=== PATIENT | male | born 1950 | race Caucasian/White ===

== ENCOUNTER 2020-06-04 10:59 | Outpatient (REF) | payer OTHER, SELFPAY | END 2020-06-04 11:00 | disposition home or self-care (01) | LOC: HO.BBR 10:59 | PROVIDERS: PCP Internal Medicine Sports Medicine; Visit Provider Internal Medicine | DX: Z13.89 Encounter for screening for other disorder (principal) ==

== ENCOUNTER 2020-10-08 08:44 | Outpatient (REF) | payer OTHER, SELFPAY | END 2020-10-08 08:45 | disposition home or self-care (01) | LOC: HO.BBR 08:44 | PROVIDERS: Visit Provider Internal Medicine | DX: Z13.89 Encounter for screening for other disorder (principal) ==

== ENCOUNTER 2021-02-12 08:44 | Outpatient (REF) | payer MEDICARE, SELFPAY | END 2021-02-12 08:45 | disposition home or self-care (01) | LOC: HO.BBR 08:44 | PROVIDERS: PCP Internal Medicine Sports Medicine; Visit Provider Internal Medicine | DX: Z13.89 Encounter for screening for other disorder (principal) ==

== ENCOUNTER 2021-06-10 08:01 | Outpatient (REF) | payer MEDICARE, SELFPAY | END 2021-06-10 08:02 | disposition home or self-care (01) | LOC: HO.BBR 08:01 | PROVIDERS: PCP Internal Medicine Sports Medicine; Visit Provider Internal Medicine | DX: Z13.89 Encounter for screening for other disorder (principal) ==

== ENCOUNTER 2022-04-09 14:09 | Outpatient (REF) | payer MEDICARE, SELFPAY | END 2022-04-09 14:10 | disposition home or self-care (01) | LOC: HO.BBR 14:09 | PROVIDERS: Visit Provider Internal Medicine | DX: Z13.89 Encounter for screening for other disorder (principal) ==

== ENCOUNTER 2022-10-20 08:57 | Outpatient (REF) | payer MEDICARE, SELFPAY | END 2022-10-20 08:58 | disposition home or self-care (01) | LOC: HO.BBR 08:57 | PROVIDERS: Visit Provider Internal Medicine | DX: Z13.89 Encounter for screening for other disorder (principal) ==

== ENCOUNTER 2023-04-18 08:53 | Outpatient (REF) | payer MEDICARE, SELFPAY | END 2023-04-18 08:54 | disposition home or self-care (01) | LOC: HO.BBR 08:53 | PROVIDERS: Visit Provider Internal Medicine | DX: Z13.89 Encounter for screening for other disorder (principal) ==

== ENCOUNTER 2023-12-20 09:48 | Outpatient (REF) | payer MEDICARE, SELFPAY | END 2023-12-20 09:49 | disposition home or self-care (01) | LOC: HO.BBR 09:48 | PROVIDERS: PCP Internal Medicine Sports Medicine; Visit Provider Internal Medicine | DX: Z13.89 Encounter for screening for other disorder (principal) ==

== ENCOUNTER 2023-12-26 07:49 | Outpatient (REF) | payer MEDICARE, SELFPAY ==
--- NOTE | ~2023-12-26 | CT_ITS ---
CT SINUS WITHOUT CONTRAST HISTORY: polyps, deviated nasal septum TECHNIQUE: CT images of the paranasal sinuses were acquired without contrast. This CT examination was performed using dose optimization techniques as appropriate, variously including the following: *Automated exposure control *Adjustment of mA and/or kV according to patient size (this includes techniques or standardized protocols for targeted exams where dose is matched to indication/reason for exam; i.e. extremities or head) *Use of iterative reconstruction technique DLP: 119 mGycm COMPARISON: None available FINDINGS: NASAL CAVITY: Leftward nasal septal deviation with leftward bony spur impinging on the left inferior nasal turbinate and encroachment upon the left lateral nasal cavity wall. Mild to moderate mucosal disease in the nasal cavity. The left olfactory fossa is asymmetrically shallow compared to the right with lateral downsloping of the left lateral lamella contiguous with the fovea ethmoidalis. No evidence of Keros type III cribriform plate (lateral lamella 8-16 mm). FRONTAL SINUS: LEFT: Mild to moderate mucosal disease with opacified frontal sinus drainage pathway. RIGHT: Moderate mucosal disease with opacified frontal sinus drainage pathway. MAXILLARY SINUS: LEFT: Mild mucosal disease with more pronounced polypoid disease in the alveolar recess Narrowed but patent ostium with otherwise patent ostiomeatal unit. RIGHT: Mild mucosal disease, with polypoid disease in the alveolar recess. Lateralization of the right uncinate process against the anterior right ethmoid air cells and inferomedial right orbit. Opacified right maxillary sinus ostium and infundibulum with patent middle meatus. ETHMOID AIR CELLS: LEFT: Moderate mucosal disease with patchy opacification RIGHT: Moderate mucosal disease with patchy opacification Lamina papyracea: Intact. Anterior ethmoid canals do not traverse through the ethmoid air cells. SPHENOID SINUS: LEFT: Contains dependent aerated debris with mild patchy mucosal disease with opacified ostium and sphenoethmoidal recess. Pneumatization extends into the base of the left anterior clinoid process. RIGHT: Mild to moderate circumferential disease with opacified ostium and sphenoethmoidal recess. Pneumatization extends into the right anterior clinoid process. The sphenoid septum inserts onto the left paraclinoid carotid canal. Sphenoethmoidal (Onodi) cell: None. OTHER: Normal appearance of the orbits. Hyperpneumatization of the mastoid temporal bone extending into the petrous and squamosal portions. 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 Additionally, portions of the semicircular canals demonstrate thinning of the bony interface with adjacent air cells that can be correlated clinically for third window phenomenon and better characterized on high-resolution temporal bone CT as clinically warranted. The carotid canals are covered by bone. The temporomandibular joints are normal. The mastoid air cells and middle ear cavities are well aerated. Limited evaluation of the intracranial structures without significant abnormalities. Calcific plaque along the carotid siphons. CT/CT sinus wo IV con IMPRESSION: 1. Leftward nasal septal deviation with leftward bony spur impinging on the left inferior nasal turbinate and encroachment upon the left lateral nasal cavity wall. Mild to moderate mild to moderate sinonasal polyposis as above with diffusely opacified major sinus drainage outflow tracts. No air-fluid level. 2. Hyperpneumatization extends into the petrous and squamosal portions of the bilateral temporal bones. Asymmetric severe narrowing of the porous acoustic is and inner aspect of the right IAC can be correlated for referrable right cranial nerve VII/VIII complex symptomatology. 3. Portions of the semicircular canals demonstrate thinning of the bony interface with adjacent air cells that can be correlated clinically for third window phenomenon and better characterized on high-resolution temporal bone CT as clinically warranted.
== END 2023-12-26 07:50 | disposition home or self-care (01) ==
LOC: HO.CT 07:49
PROVIDERS: Visit Provider Otolaryngology
DX: J30.0 Vasomotor rhinitis (principal); J34.2 Deviated nasal septum
CPT/HCPCS: 70486

== ENCOUNTER 2024-03-22 09:35 | Outpatient (REF) | payer MEDICARE, SELFPAY ==
[2024-03-22 10:44] LABS: MANUAL DIFF FLAG NO
[2024-03-22 11:47] LABS: Basophils Absolute Auto 0.1 X10*3/uL (0.0-0.2); Eosinophils Absolute Auto 0.5 X10*3/uL (0.0-0.4); Hematocrit 48.4 % (42.0-52.0); Hemoglobin 16.6 g/dl (14.0-18.0); Imm Gran Abs Auto 0.01 X10*3/uL (0.00-0.03); Imm Gran Pct Auto 0.2 % (0.0-0.4); Lymphocytes Percent Auto 31.7 % (20-40); Mean Corpuscular HGB Conc 34.3 g/dl (31.0-36.0); Mean Corpuscular Hemoglobin 32.5 pg (27.0-33.0); Mean Corpuscular Volume 94.9 fL (80.0-98.0); Monocytes Absolute Auto 0.5 X10*3/uL (0.1-1.2); Monocytes Percent Auto 7.5 % (2-11); Neutrophils Absolute Auto 3.2 x10*3/uL (2.0-8.3); Neutrophils Percent Auto 51.6 % (45-73); Platelet Count 171 X10*3/uL (160-400); Red Cell Distribution Width 12.1 % (11.0-16.0); White Blood Count 6.3 X10*3/uL (4.8-10.8)
[2024-03-27 03:02] LABS: Class Alternaria alternata 0; Class Aspergillus fumigatus 0; Class Bermuda Grass 0; Class Birch 0; Class Cat Dander 0; Class Cladosporium herbarum 0; Class Cockroach 0; Class Common Ragweed 0/1; Class Cottonwood 0; Class Derm. pterony 3; Class Dermatophagoides farinae 3; Class Dog Dander 1; Class Elm 0; Class Maple Box Elder 0/1; Class Mountain Cedar 0; Class Mouse Urine Protein 0; Class Mugwort 0/1; Class Oak 0; Class Penicillium crysogenum 0; Class Rough Pigweed 0; Class Sheep Sorrel 0; Class Sycamore 0; Class Timothy Grass 1; Class Walnut Tree 0; Class White Ash 0; Class White Mulberry 0; D001 IgE D pteronyssinus 3.59 kU/L; D002 - IgE D farinae 4.87 kU/L; E001 - IgE Cat Dander <0.10 kU/L; E005 - IgE Dog Dander 0.36 kU/L; E072-IgE Mouse Urine <0.10 kU/L; G002 IgE Bermuda Grass <0.10 kU/L; G006 - IgE Timothy Grass 0.36 kU/L; I006-IgE Cockroach, German <0.10 kU/L; Immunoglobulin E 214 kU/L (<OR=114); M001 IgE Penicillium chrysogen <0.10 kU/L; M002 - IgE Cladosporium herbar <0.10 kU/L; M003 - IgE Aspergillus fumigat <0.10 kU/L; M006 - IgE Alternaria alternat <0.10 kU/L; T001 IgE Maple/Box Elder 0.12 kU/L; T003 IgE Common Silver Birch <0.10 kU/L; T006 - IgE Cedar, Mountain <0.10 kU/L; T007 - IgE Oak, White <0.10 kU/L; T008 IgE Elm, American <0.10 kU/L; T010 - IgE Walnut <0.10 kU/L; T011 - IgE Maple Leaf Sycamore <0.10 kU/L; T014 - IgE Cottonwood <0.10 kU/L; T015 - IgE Ash, White <0.10 kU/L; T070 - IgE White Mulberry <0.10 kU/L; W001 - IgE Ragweed, Short 0.21 kU/L; W014 IgE Pigweed, Common <0.10 kU/L; W018 IgE Sheep Sorrel <0.10 kU/L
== END 2024-03-22 09:36 | disposition home or self-care (01) ==
LOC: HO.LAB 09:35
PROVIDERS: PCP Internal Medicine Sports Medicine; Referring Provider Otolaryngology; Visit Provider Internal Medicine Pulmonary Disease
DX: J45.909 Unspecified asthma, uncomplicated (principal); Z91.09 Other allergy status, other than to drugs and biological substances
CPT/HCPCS: 36415; 82785; 85025; 86003; 99202

== ENCOUNTER 2024-03-22 09:35 | Outpatient (AMB) | payer MEDICARE, SELFPAY ==
[2024-03-22 09:38] VITALS: BP 110/80; PULSE 71; O2SAT 94; BMI 30.6
--- NOTE | 2024-03-22 09:38 | A.OFFVIS_ITS ---
Vital Signs 03/22/24 09:38 Height 5 ft 11 in Weight 219 lb 5.759 oz BMI 30.6 BP 110/80 Blood Pressure Location Rt brachial Position Sitting Pulse 71 Pulse Source Doppler Pulse Oximetry (%) 94 Oxygen Delivery Method Room Air Intake Visit Reasons: asthma Allergies No Known Allergies Allergy (Verified 03/22/24 09:44) HPI HPI asthma: Details: 73-year-old gentleman, lifetime nonsmoker, with no family or personal history of lung disease referred for evaluation of intermittent wheezing associated with cough productive of whitish sputum with some response to prior course of prednisone, but no significant response to Flonase or Zyrtec. Patient states that he was started on albuterol MDI with improvement in his symptoms, but not complete control. He does have a dog. He was employed without exposure to industrial dusts. [facility] Social History (Updated 03/22/24 @ 09:45 by BENSON Cruz) Patient Tobacco Use Status: Never used Tobacco Review of Systems ENT Reports nasal congestion Card Denies chest pain Resp Reports cough, Reports excessive phlegm production and Reports wheezing Aller/Immun Reports wheezing Physical Exam Vital Signs: Last Vital Signs Pulse 71 03/22/24 09:38 BP 110/80 03/22/24 09:38 Pulse Ox 94 03/22/24 09:38 Oxygen Delivery Method Room Air 03/22/24 09:38 BMI result Body Mass Index 30.6 Const General: no acute distress and alert Nutritional Appearance: not obese Orientation/consciousness: Other orientation findings ( oriented) HEENT Head: Yes atraumatic Eyes General: appearance normal, both eyes and all related structures Sclerae: sclerae normal EOM: EOMs intact bilaterally Neck Neck: Yes supple Lymphatic: no lymphadenopathy noted Resp Effort & Inspection: normal respiratory effort and no use of accessory muscles Auscultation: clear to auscultation bilaterally Cardio Rate: regular rate Rhythm: regular rhythm Heart sounds: no gallops, no murmurs and no rubs Skin General skin exam: other ( warm) Extrem General: No clubbing, No cyanosis and No edema Assessment & Plan Assessment & Plan (1) Asthma: Code(s): J45.909 - Unspecified asthma, uncomplicated Category: Medical Plan: Likely underlying asthma of unclear severity. Will obtain full PFT and start on empiric Breo. Continue albuterol MDI. (2) Environmental allergies: Code(s): Z91.09 - Other allergy status, other than to drugs and biological substances Category: Medical Plan: Environmental allergies with suboptimal control on Zyrtec and Flonase. Will obtain RAST panel, IgE level, and CBC with differential for further evaluation. Orders: Orders Resp Allergy Profile Region I Today J45.909 - Unspecified asthma, uncomplicated, Z91.09 - Other allergy status, other than to drugs and biological substances PFT pulmonary function test Today J45.909 - Unspecified asthma, uncomplicated Complete Blood Count Auto Diff Today Z91.09 - Other allergy status, other than to drugs and biological substances Medications: New fluticasone furoate-vilanterol 200-25 mcg/dose (Breo Ellipta) 1 inh inhalation DAILY 1 ea 6RF J45.909 - Unspecified asthma, uncomplicated Coding Level of Care Code New Pt Level 4 (91801) Diagnoses Asthma J45.909 Environmental allergies Z91.09
== END 2024-03-22 10:09 | disposition home or self-care (01) ==
PROVIDERS: PCP Internal Medicine Sports Medicine; Referring Provider Otolaryngology; Visit Provider Internal Medicine Pulmonary Disease
DX: J45.909 Unspecified asthma, uncomplicated (principal); Z91.09 Other allergy status, other than to drugs and biological substances
CPT/HCPCS: 99204

== ENCOUNTER 2024-04-18 14:06 | Outpatient (AMB) | payer MEDICARE, SELFPAY ==
[2024-04-18 14:07] VITALS: BP 128/67; PULSE 59; O2SAT 95; BMI 30.4
--- NOTE | 2024-04-18 14:07 | MHC.OFFVIS ---
Vital Signs 04/18/24 14:07 Height 5 ft 11 in Weight 218 lb BMI 30.4 BP 128/67 Blood Pressure Location Rt brachial Position Sitting Pulse 59 Pulse Source Doppler Pulse Oximetry (%) 95 Oxygen Delivery Method Room Air Intake Visit Reasons: Asthma Allergies No Known Allergies Allergy (Verified 03/22/24 09:44) HPI HPI Asthma: Details: 73-year-old gentleman, lifetime nonsmoker, with no family or personal history of lung disease referred for evaluation of intermittent wheezing associated with cough productive of whitish sputum with some response to prior course of prednisone, but no significant response to Flonase or Zyrtec. Patient states that he was started on albuterol MDI with improvement in his symptoms, but not complete control. He does have a dog. He was employed without exposure to industrial dusts. After the last office visit patient was started on Breo with significant improvement in his symptoms. He is also completed his immunologic testing showed that he has immunologic component to his symptoms. He denies recent exacerbations. [facility], [facility] Social History (Updated 03/22/24 @ 09:45 by Yenny Woo FOR[facility]LY [facility], [facility]) Patient Tobacco Use Status: Never used Tobacco Review of Systems Const Denies daytime sleepiness, Denies excessive sweating, Denies fatigue, Denies fever(s), Denies lethargy, Denies malaise, Denies night sweats, Denies snoring and Denies weight loss Eyes Denies blurry vision and Denies itchy eyes ENT Denies nasal congestion, Denies post nasal drip, Denies sinus pain, Denies sinus pressure and Denies other ( Thrush) Card Denies chest pain, Denies pedal edema, Denies dyspnea, Denies orthopnea and Denies paroxysmal nocturnal dyspnea Resp Denies cough, Denies hemoptysis, Denies excessive phlegm production, Denies dyspnea, Denies snoring and Denies wheezing GI Denies abdominal pain and Denies heartburn Musc Denies myalgias, Denies arthralgias and Denies joint swelling Skin/Breast Denies rash Neuro Denies memory loss and Denies seizure-like activity Psych Denies abnormal sleep pattern, Denies anxiety and Denies memory loss Endo Denies excessive sweating, Denies fatigue and Denies heat intolerance Eyad/Lymph Denies easy bruising Aller/Immun Denies itchy eyes, Denies seasonal rhinorrhea and Denies wheezing Physical Exam Vital Signs: Last Vital Signs Pulse 59 04/18/24 14:07 BP 128/67 04/18/24 14:07 Pulse Ox 95 04/18/24 14:07 Oxygen Delivery Method Room Air 04/18/24 14:07 BMI result Body Mass Index 30.4 Const General: no acute distress and alert Nutritional Appearance: not obese Orientation/consciousness: Other orientation findings ( oriented) HEENT Head: Yes atraumatic Eyes General: appearance normal, both eyes and all related structures Sclerae: sclerae normal EOM: EOMs intact bilaterally Neck Neck: Yes supple Lymphatic: no lymphadenopathy noted Resp Effort & Inspection: normal respiratory effort and no use of accessory muscles Auscultation: clear to auscultation bilaterally Cardio Rate: regular rate Rhythm: regular rhythm Heart sounds: no gallops, no murmurs and no rubs Skin General skin exam: other ( warm) Extrem General: No clubbing, No cyanosis and No edema Assessment & Plan Assessment & Plan (1) Asthma: Code(s): J45.909 - Unspecified asthma, uncomplicated Category: Medical Plan: Well controlled on Breo and albuterol MDI. Continue current regimen. (2) Environmental allergies: Code(s): Z91.09 - Other allergy status, other than to drugs and biological substances Category: Medical Plan: Results of RAST testing CBC with differential, and IgE level reviewed. Underlying significant immunologic component to his symptoms that is currently well controlled on inhaled corticosteroid, if stops being controlled, will consider Xolair. Coding Level of Care Code Est Pt Level 4 (63488) Diagnoses Asthma J45.909 Environmental allergies Z91.09
== END 2024-04-18 14:27 | disposition home or self-care (01) ==
PROVIDERS: PCP Internal Medicine Sports Medicine; Visit Provider Internal Medicine Pulmonary Disease
DX: J45.909 Unspecified asthma, uncomplicated (principal); Z91.09 Other allergy status, other than to drugs and biological substances
CPT/HCPCS: 99214

== ENCOUNTER → 2024-04-18 14:06 | Outpatient (BNVA) | payer MEDICARE, SELFPAY | PROVIDERS: PCP Internal Medicine Sports Medicine; Visit Provider Internal Medicine Pulmonary Disease | DX: J45.909 Unspecified asthma, uncomplicated (principal); Z91.09 Other allergy status, other than to drugs and biological substances | CPT/HCPCS: 99212 ==

== ENCOUNTER 2024-06-18 08:57 | Outpatient (REF) | payer MEDICARE, SELFPAY ==
--- OUTSIDE RECORDS SUMMARY | 2024-06-18 09:07 | XMS_ITS | Continuity of Care Document ---
Author Organization [facility] Address [address] [place] [address]- Care Team Providers Care Wire Border Assembler Name Role Phone Dustin SHARMA, Paul Perera Primary Care Physician [phone] Encounter [facility] Date(s): 05/02/24 - 06/01/24 [facility] [address] [place], [place] [address] Encounter Type: Triage Allergies, Adverse Reactions, Alerts No Known Allergies Immunizations Given and Recorded Vaccine Date Status Refusal Reason RSV vaccine, preF A-preF B, recombinant 03/29/24 R ecorded influenza virus vaccine, inactivated 03/28/24 Cisco rded influenza virus vaccine, inactivated 04/02/23 Cisco rded influenza virus vaccine, inactivated 03/22/22 Cisco rded influenza virus vaccine, inactivated 03/30/21 Cisco rded influenza virus vaccine, inactivated 03/20/20 Cisco rded influenza virus vaccine, inactivated 04/12/19 Cisco rded influenza virus vaccine, inactivated 04/06/18 Cisco rded influenza virus vaccine, inactivated 04/08/17 Cisco rded influenza virus vaccine, inactivated 04/09/15 Cisco rded [id number] 12y+ bivalent booster vax 04/19/22 Recorded SARS-CoV-2 mRNA ([id number]) vax 10/15/21 Recorded SARS-CoV-2 (COVID-19) mRNA BNT-162b2 vac 03/30/21 Recorded SARS-CoV-2 (COVID-19) mRNA BNT-162b2 vac 09/13/20 Recorded SARS-CoV-2 (COVID-19) mRNA BNT-162b2 vac 08/23/20 Recorded tetanus/diphtheria/pertussis, acel(Tdap) 05/29/19 Recorded pneumococcal 23-valent vaccine 04/20/18 Recorded zoster vaccine, inactivated 11/12/17 Recorded zoster vaccine, inactivated 08/22/17 Recorded pneumococcal 13-valent vaccine 08/22/17 Recorded Medications albuterol CFC free 90 mcg/inh inhalation aerosol 2, puffs, Inhalation, Every 4 hours, PRN, # 8.5 Gm, Refills 0, Tot. Refills 0, Maintenance, :32:00 PM EDT, Aerosol, Route to Pharmacy Electronically, [id number], [facility]/pharmacy #[id number], 178, cm, 12/05/23 15:01:00 EDT, Height, 96.3, kg, 05/26/22 6:14:00 EST, Dry Weight Start Date: 03/02/24 Status: Ordered Quantity: 8.5 Unit: g Repeat number: 1 atorvastatin 20 mg oral tablet 1 tablet, By Mouth, Daily at bedtime, # 90 tablet, 3 Refills, Maintenance, 05/05/24 1:26:00 PM EDT, [facility] STORE [id number], 178, cm, 12/05/23 15:01:00 EDT, Height, 96.3, kg, 05/26/22 6:14:00 EST, Dry Weight Start Date: 05/05/24 Status: Ordered Quantity: 90.0 Unit: tablet Repeat number: 1 Centrum 1 tablet, By Mouth, Daily, Maintenance, 04/12/22 8:39:00 AM EDT, Partial fill upon patient request if the prescription is for a schedule II opioid drug. Start Date: 04/12/22 Status: Ordered Repeat number: 1 Flonase Allergy Relief 50 mcg/inh nasal spray 1 sprays, Nares, Both, 2 times a day, # 16 Gm, 3 Refills, Maintenance, 03/02/24 1:32:00 PM EDT, [facility]/pharmacy #1972, Partial fill upon patient request if the prescription is for a schedule II opioid drug., 178, cm, 12/05/23 15:01:00 EDT, Height, 96.3, kg, 05/26/22 6:14:00 EST, Dry Weight Start Date: 03/02/24 Status: Ordered Quantity: 16.0 Unit: g Repeat number: 4 lisinopril 10 mg oral tablet 1, tablet, By Mouth, Daily, # 90 tablet, Refills 1, Tot. Refills 1, 04/10/24 5:26:00 PM EDT, Route to Pharmacy Electronically, [facility]/pharmacy #1972, 178, cm, 12/05/23 15:01:00 EDT, Height, 96.3, kg, 05/26/22 6:14:00 EST, Dry Weight Start Date: 04/10/24 Status: Ordered Quantity: 90.0 Unit: tablet Repeat number: 2 Ocuvite 1 tablet, By Mouth, Daily, Maintenance, 04/12/22 8:39:00 AM EDT, Partial fill upon patient request if the prescription is for a schedule II opioid drug. Start Date: 04/12/22 Status: Ordered Repeat number: 1 Problem List Condition Confirmation Course Effective Dates Status H ealth Status Informant Chronic neck pain Confirmed Active Essential hypertension Confirmed Active Hemochromatosis Confirmed Active Hyperlipidemia Confirmed Active Actinic keratoses Confirmed Active Obese class I Confirmed Active SVT (supraventricular tachycardia) 1 Confirmed Active Social History Social History Type Response Smoking Status Never (less than 100 in lifetime) entered on: 01/26/21 Sex Sex Representation Male (finding) Patient Care team information Care Team Personnel Name: Dwayne Thornton RN Position: [facility] RN Member Role: Primary Care Nurse Name: Paul Chan MD Position: [facility] Physician - Primary Care Member Role: PCP Address: [address] [place] [address] [facility] [address] Telecom: Care Team Related Persons Name: EDWIN MORA Insurance Providers Guarantor name: BLUE Health Plan Information #: 1 Payer: BLUE Member Number: BLUE Policy Number: NA Group Number: [id number]
--- OUTSIDE RECORDS SUMMARY | 2024-06-18 09:07 | XMS_ITS | Continuity of Care Document ---
Author Organization [facility] Address [address] [place] [address]- Care Team Providers Care Appointment Specialist Name Role Phone Dustin SHARMA, Paul Perera Primary Care Physician Encounter [facility] Date(s): 05/11/24 - 06/10/24 [facility] [address] [place], [place] [address] Encounter Type: Triage Allergies, Adverse Reactions, [...] influenza virus vaccine, inactivated 04/09/15 Cisco rded [id number] 12y+ bivalent booster vax 04/19/22 Recorded SARS-CoV-2 mRNA (xadelxy-[id number]-fszai) vax 10/15/21 Recorded SARS-CoV-2 (COVID-19) mRNA BNT-162b2 [...] PM EDT, Aerosol, Route to Pharmacy Electronically, [id number], [facility]/pharmacy #1972, 178, cm, 12/05/23 15:01:00 EDT, Height, 96.3, kg, 05/26/22 6:14:00 EST, Dry Weight Start Date: 03/02/24 Status: Ordered Quantity: 8.5 Unit: g Repeat number: 1 atorvastatin 20 mg oral tablet 1 tablet, By Mouth, Daily at bedtime, # 90 tablet, 3 Refills, Maintenance, 05/05/24 1:26:00 PM EDT, [id number], 178, cm, 12/05/23 15:01:00 EDT, Height, 96.3, kg, 05/26/22 6:14:00 EST, Dry Weight Start Date: 05/05/24 Status: Ordered Quantity: 90.0 Unit: tablet Repeat number: 1 Breo Ellipta 200 mcg-25 mcg/inh inhalation powder 1 puffs, Inhalation, Daily, pulm, 0 Refills, Maintenance, 06/05/24 9:58:00 AM EST, Powder, Partial fill upon patient request if the prescription is for a schedule II opioid drug. Start Date: 06/05/24 Status: Ordered Repeat number: 1 Centrum 1 tablet, By Mouth, Daily, Maintenance, 04/12/22 8:39:00 AM EDT, Partial fill upon patient request if the prescription is for a schedule II opioid drug. Start Date: 04/12/22 Status: Ordered Repeat number: 1 lisinopril 10 mg oral tablet 1, tablet, By Mouth, Daily, # 90 tablet, Refills 1, Tot. Refills 1, 04/10/24 5:26:00 PM EDT, Route to Pharmacy Electronically, [facility]/pharmacy #1972, 178, cm, 12/05/23 15:01:00 EDT, Height, [...] Essential hypertension Confirmed Active Hemochromatosis Confirmed Active History of supraventricular tachycardia Confirmed Active Hyperlipidemia Confirmed Active Moderate persistent asthma Confirmed Active Actinic keratoses Confirmed Active Obese class I Confirmed Active Social History Social History Type Response Smoking Status Never (less than 100 in lifetime) entered on: 01/26/21 Sex Sex Representation Male (finding) Patient Care team information Care Team Personnel Name: Dwayne Thornton RN Position: [facility] RN Member Role: Primary Care Nurse Name: Paul Chan MD Position: [facility] Physician - Primary Care Member Role: PCP Address: [address] [place] [address] [facility] [address] Telecom: Care Team Related Persons Name: EDWIN MORA Insurance Providers Guarantor name: BLUE Health Plan Information #: 1 Payer: BLUE Member Number: BLUE Policy Number: BLUE Group Number: [id number]
--- OUTSIDE RECORDS SUMMARY | 2024-06-18 09:07 | XMS_ITS | Continuity of Care Document ---
Author Organization [facility] [place] [place] [facility] Address [address] [place] [address]- Care Team Providers Care Meat Stuffer Name Role Phone Paul Chan MD Primary Care Physician [place] [facility] [place] 06/05[place] - 06/12/[address] [facility] [place] [place] [facility] [address], [place] [address] Encounter Diagnosis Moderate persistent asthma(Discharge Diagnosis) - 06/05/24 Pes planovalgus(Discharge Diagnosis) - 06/05/24 Essential hypertension(Discharge Diagnosis) - 06/05/24 Hemochromatosis(Discharge Diagnosis) - 06/05/24 Attending Physician: Paul Chan MD Encounter Type: Office Visit Allergies, Adverse Reactions, Alerts No Known Allergies [...] influenza virus vaccine, inactivated 04/09/15 [employer] rded [id number] 12y+ bivalent booster vax 04/19/22 Recorded SARS-CoV-2 mRNA ([id number]) vax 10/15/21 Recorded SARS-CoV-2 (COVID-19) mRNA BNT-162b2 [...] PM EDT, Aerosol, Route to Pharmacy Electronically, [id number], [facility]/pharmacy #[id number], 178, cm, 12/05/23 15:01:00 EDT, Height, 96.3, kg, 05/26/22 6:14:00 EST, Dry Weight Start Date: 03/02/24 Status: Ordered Quantity: 8.5 Unit: g Repeat number: 1 atorvastatin 20 mg oral tablet 1 tablet, By Mouth, Daily at bedtime, # 90 tablet, 3 Refills, Maintenance, 05/05/24 1:26:00 PM EDT, [facility] STORE [id number], 178, cm, 12/05/23 15:01:00 EDT, Height, 96.3, [...] 5:26:00 PM EDT, Route to Pharmacy Electronically, [facility]/pharmacy #[id number], 178, cm, 12/05/23 15:01:00 EDT, [...] Confirmed Active Obese class I Confirmed Active Diagnosis Diagnosis Type Effective Dates Health Status Clinical Service Informant Moderate persistent asthma Discharge Diagnosis 06/05/24 Pes planovalgus Discharge Diagnosis 06/05/24 Essential hypertension Discharge Diagnosis 06/05/24 Hemochromatosis Discharge Diagnosis 06/05/24 Vital Signs Most recent to oldest [Reference Range]: 1 Height 178 cm (06/05/24 9:44 AM) Weight 99.5 kg (06/05/24 9:44 AM) Oxygen Saturation [94-100 %] 96 % (06/05/24 9:44 AM) Pulse Rate [55-90 bpm] 75 bpm (06/05/24 9:44 AM) Body Mass Index [18.5-24.99 kg/m2] 31.4 kg/m2 *>HHI* (06/05/24 9:44 AM) Blood Pressure [90-138/55-84 mm Hg] 129/ 78mm Hg (06/05/24 9:44 AM) Mode of Delivery (Oxygen) Room air (06/05/24 9:44 AM) Blood pressure sites Arm, left (12/3/24 9:44 AM) Weight Obtained Via Standing scale (06/05/24 9:44 AM) Social History Social History Type Response Smoking Status Never (less than 100 in lifetime) entered on: 01/26/21 Sex Sex Representation Male (finding) Note * Melissa Greenfielda: PERFORM Event Display: Patient Education/Instruction Authored Date: Ambulatory Adult Visit Summary [facility] [place] [place] [facility] [address] [place] [id number] Name: REBECCA MORA : 1950?? Visit: 06/05/2024 09:41?? Ambulatory Visit Instructions ?? Your Care Team Primary Care Provider Paul Chan MD? This Visit Provider Paul Chan MD Your Diagnosis Hypertension Increasing prostate specific antigen level Vitals Signs Pulse Rate: 75 bpm Height: 178 cm Systolic Blood Pressure: 129 mm Hg Weight: 99.5 kg Diastolic Blood Pressure: 78 mm Hg Body Mass Index:??31.4 kg/m2??Critical Oxygen Saturation: 96 % Body surface area: 2.22 What to do next Follow-Up Appointments Follow up Appointment - Ordered?-- 6 months, PE, 06/05/24 10:16:00 EST Future Orders XR Ankle Min 3 Views Right, Routine, Reason for Exam: Trauma, C/Q: Other:, callous, fracture, Once,*Est. 06/05/24, Order for Today PSA - Routine, Once, 12/07/23 21:24:00 EDT, Order for Today, [facility], Blood?? PSA - Routine, Once, 06/05/24 10:03:00 EST, Order for Today, [facility], Blood?? Basic Metabolic Panel - Routine, Once, 06/05/24 10:03:00 EST, Order for Today, [facility], Blood?? Medications The list below reflects the information in our records and provided by you today along with any changes made during this visit. Please continue your medications until treatment is completed or stopped by your provider. If this is different from the information you have or there are other questions,please contact the prescribing provider. What How Much When Instructions Unchanged Albuterol (albuterol CFC free 90 mcg/ inh inhalation aerosol) 2 puff(s) Inhalation Every 4 hours as needed for as needed for wheezing/cough/shortness of breath Unchanged Atorvastatin (atorvastatin 20 mg oral tablet) 1 tab(s) Oral Daily at Bedtime Unchanged fluticasone-vilanterol (Breo Ellipta 200 mcg-25 mcg/ inh inhalation powder) 1 puff(s) Inhalation Daily pulm ?? Unchanged Lisinopril (lisinopril 10 mg oral tablet) 1 tab(s) Oral Daily Unchanged Multivitamin With Minerals (Centrum) 1 tab(s) Oral Daily Unchanged Multivitamin With Minerals (Ocuvite) 1 tab(s) Oral Daily ?? What How Much When Comments Stop Taking Fluticasone Nasal (Flonase Allergy Relief 50 mcg/ inh nasalspray) 1 spray(s) Nares, Both Twice a day Test Performed Below is a partial list of the tests performed during your Visit. You may have had other tests and procedures not included in this list. Please discuss all test results with your provider. Basic Metabolic Panel?-- Results Pending -- PSA?-- Results Pending -- Medications and Immunizations Administered Medications Given During Visit No medications given during this visit.?? Allergies (NKA means No Known Allergies) NKA Common Emergency Awareness Tips IS IT A STROKE? Act FAST and Check for these signs: FACE Does the face look uneven? ARM Does one arm drift down? SPEECH Does their speech sound strange? TIME Call at any sign of stroke ?? Heart Attack Signs Chest discomfort: Most heart attacks involve discomfort in the center of the chest and lasts more than a few minutes, or goes away and comes back. It can feel like uncomfortable pressure, squeezing, fullness or pain. Discomfort in upper body: Symptoms can include pain or discomfort in one or both arms, back, neck, jaw or stomach. Shortness of breath: With or without discomfort. Other signs: Breaking out in a cold sweat, nausea, or lightheaded. Remember, MINUTES DO MATTER. If you experience any of these heart attack warning signs, call to get immediate medical attention! ?? Smoking can increase your chances of developing chronic health problems and can cause harmful effects to other family members in your house. If you smoke, you are strongly encouraged to quit. Please call [facility] at [phone] or [phone] ([phone]) or log in to [email or web address] for referrals to smoking cessation programs. ?? The National Suicide Prevention Hotline is available 24/01 if you or someone you know needs to find a reason to keep living. By calling 0-861-973-RECOMBINETICS (7533) you'll be connected to a skilled, trained counselor at a crisis center in your area. [facility] You can view and manage your care through the patient portal or by using a health care alyson of your choosing. [facility] is a website that allows you to securely view your medical information including your hospital discharge summary, office visit summaries, medications and follow-up visits. You can also request appointments, renew medications, and request access to your medical information using a health care alyson of your choosing, or just ask a question. You can enroll at [email or web address] or register during your next office visit. [facility], in keeping with [facility] guidance, no longer requires face masks for staff, patientsor visitors in most situations. Similiar to time spent indoors at other locations, there is the chance that you were exposed to repiratory viruses during your time with us (such as flu or COVID-19). If you develop symptoms concerning for a viral respiratory infection, please seek testing (and treatment if indicated) from your medical provider or home test kit. ?? Disclaimer: The information provided is of a general nature and is intended to be used in conjunction with the recommendations and advice of your health care practitioner. Every effort has been made to ensure that the information provided is accurate and complete at the time it is provided to you however, as your needs change, or, as new information becomes available, different or additional instructions may be required. ?? If you have questions, please consult with your primary care provider or pharmacist, as appropriate. This information is not intended to serve as substitution for assessment and evaluation by a qualified health care provider. If you do not have a primary care provider, you may find a [facility] [employer] provider by calling [facility] at [phone]. Patient Care team information Care Team Personnel Name: Dwayne Thornton RN Position: ADILENE RN Member Role: Primary Care Nurse Name: Paul Chan MD Position: S Physician - Primary Care Member Role: PCP Address: [address] [place] [address] [facility] [address] Telecom: Care Team Related Persons Name: EDWIN MORA Insurance Providers Guarantor name: BLUE Health Plan Information #: 1 Payer: Member Number: [id number] Policy Number: Group Number: [id number] Health Plan Information #: 2 Payer: NA Member Number: [id number] Policy Number: NA Group Number: [id number]
== END 2024-06-18 08:58 | disposition home or self-care (01) ==
LOC: HO.BBR 08:57
PROVIDERS: PCP Internal Medicine Sports Medicine; Visit Provider Internal Medicine
DX: Z13.89 Encounter for screening for other disorder (principal)

== ENCOUNTER 2024-10-17 09:43 | Outpatient (REF) | payer MEDICARE, SELFPAY ==
--- NOTE | 2024-10-17 09:46 | PFT_ITS ---
Indication: Asthma Spirometry [FEV1 to FVC 75%; FEV1 3.24 L; FVC 4.33 L. No significant response to bronchodilators noted.] Lung Volumes [Total lung capacity 89% predicted] Diffusion Capacity [DLCO 96% predicted] Comparisons [none] Interpretation [No obstructive nor restrictive ventilatory defects identified. Although there appears to be a slight concavity to the expiratory limb suggesting an obstructive physiology. No significant response to bronchodilators noted. Lung volumes are normal. Diffusing capacity is within normal limits. If asthma is in the differential methacholine challenge may be helpful in assessing for hyperreactive airways. Clinical correlation warranted.] MTDD
[2024-10-17 10:25] VITALS: PULSE 56; O2SAT 97
--- OUTSIDE RECORDS SUMMARY | 2024-10-17 10:52 | XMS_ITS | Clinical Summary ---
Author Organization [facility] Address [address] [place], [place] [id number] Care Team Providers Care Crotch Piece Baster Name Role Phone Paul Chan MD Primary Care Provider [phone] Allergies Active Allergy Reactions Criticality Noted Date Comments Amlodipine Palpitations Low 05/20/2021 Medications Medication Sig Dispensed Refills Start Date End Date Status atorvastatin (LIPITOR) tablet 20 mg Take 1 tablet (20 mg total) by mouth daily. 0 Active lisinopril (PRINIVIL,ZESTRIL) tablet 10 mg Take 1 tablet (10 mg total) by mouth daily. 0 Active metoprolol succinate (TOPROL-XL) 24 hr tablet 25 mg Take by mouth daily. 0 Active fluticasone (FLONASE) 50 MCG/ACT nasal spray spray/apply 1 spray in each nostril daily. 0 Active Active Problems No known active problems Social History Tobacco Use Types Packs/Day Years Used Date Smoking Tobacco: Never Smokeless Tobacco: Former Quit: 02/19/2015 Alcohol Use Standard Drinks/Week Comments Yes 0 (1 standard drink = 0.6 oz pur e alcohol) Sex and Gender Information Value Date Recorded Sex Assigned at Not on file Gender Identity Not on file Sexual Orientation Not on file Job Start Date Occupation Industry Not on file Not on file Not on file Last Filed Vital Signs Vital Sign Reading Time Taken Comments Blood Pressure 143/82 12/01/2023 9:51 AM EDT Pulse 72 12/01/2023 9:51 AM EDT Temperature 36.5 ??C (97.7 ??F) 12/01/2023 9:51 AM ED T Respiratory Rate - - Oxygen Saturation 98% 12/01/2023 9:51 AM EDT Inhaled Oxygen Concentration - - Weight 99.8 kg (220 lb) 12/01/2023 9:51 AM EDT Height 177.8 cm (5' 10 ) 12/01/2023 9:51 AM EDT Body Mass Index 31.57 12/01/2023 9:51 AM EDT Plan of Treatment Health Maintenance Due Date Last Done Comments Hepatitis C Screening 1950 Depression Screening 1962 Preventative Health Evaluation 1968 Colon Cancer Screening (Colonoscopy) 1995 Fall Risk Assessment 2015 COVID-19 Vaccine ( season) 2024 10/15/2021, 03/30/2021, 09/13/2020, Additional history exists Influenza Vaccine (#1) 2024 , 03/22/2022, 03/22/2022, Additional history exists RSV Adult > 60+ Yrs or (1 - 1-dose 75+ series) 2025 DTap / Tdap / Td (2 - Td or Tdap) 05/29/2029 05/29/2019 Shingrix-Zoster Vaccine Completed 11/12/2017, 08/22 Pneumococcal Vaccine Completed 04/20/2018, 08/22/19 18 Hepatitis B Vaccines Aged Out No long er eligible based on patient's age to complete this topic RSV Ped < 20 months Aged Out No longe r eligible based on patient's age to complete this topic Care Teams Crotch Piece Baster Relationship Specialty Start Date End Date Paul Chan MD [address] [place] [phone] PCP - General Internal Medicine 02/14/20
--- OUTSIDE RECORDS SUMMARY | 2024-10-17 10:53 | XMS_ITS | Clinical Summary ---
Author Organization [facility] it Address [address] [place] [address] Care Team Providers Care Network Coordinator Name Role Phone Paul Chan MD Primary Care Provider Allergies Active Allergy Reactions Criticality Noted Date Comments Amlodipine Palpitations Low 05/20/2021 Medications atorvastatin (LIPITOR) 20 mg tablet Take 1 tablet (20 mg total) by mouth 1 (one) time each day. Active fluticasone propionate (FLONASE) 50 mcg/actuation nasal spray spray/apply 1 spray in each nostril daily. Active lisinopriL (PRINIVIL,ZESTR IL) 10 mg tablet Take 1 tablet (10 mg total) by mouth 1 (one) time each day. Active metoprolol succinate (TOPROL-XL) 25 mg 24 hr tablet Take by mouth 1 (one) time each day. Active Immunizations Name Administration Dates Next Due [facility] (ages 12 & older) VIC S-CoV-2 COVID-19, mRNA, LNP-S, anitra-sucrose, preservative free 10/15/2021 [facility] SARS-CoV-2 COVID-19, mRNA, LNP-S, preservative free 03/30/2021,09/13/2020,08/23/2020 Social History Tobacco Use Types Packs/Day Years Used Date Smoking Tobacco: Never Cigarettes Qu it: 02/19/2015 Smokeless Tobacco: Former Quit: 02/19/2015 Alcohol Use Standard Drinks/Week Comments Yes 0 (1 standard drink = 0.6 oz pur e alcohol) Sex and Gender Information Value Date Recorded Sex Assigned at Not on file Legal Sex Male 6:39 PM EST Gender Identity Not on file Sexual Orientation Not on file Obstetrics History Last Filed Vital Signs Vital Sign Reading Time Taken Comments Blood Pressure 143/82 12/01/2023 9:51 AM EDT Sitting Left arm Pulse 72 12/01/2023 9:51 AM EDT Temperature - - Respiratory Rate - - Oxygen Saturation - - Inhaled Oxygen Concentration - - Weight 99.8 kg (220 lb) 12/01/2023 9:51 AM EDT Height 177.8 cm (5' 10 ) 12/01/2023 9:5 1 AM EDT Body Mass Index 31.57 12/01/2023 9:51 AM EDT Plan of Treatment Upcoming Encounters Date Type Department Care Team (Late st Contact Info) Description 11/13/2024 9:30 AM EDT Office Visit [facility] Hematology Oncology [address] [place] [id number] Alexsandra Mayo MD [address] [place] [address] Health Maintenance Due Date Last Done Comments Hepatitis A Vaccines (1 of 2 - Risk 2-dose series) 1969 Hepatitis B Vaccines (1 of 3 - Risk 3-dose series) 2010 RSV Immunization Adult Patients (1 - Risk 60-74 years 1-dose series) 2010 Cholesterol Screening (Lipid Panel) 06/11/2022 Colorectal Cancer Screening: Colonoscopy 06/11/2022 Depression Screening 06/11/2022 Falls Risk Assessment 06/11/2022 Hepatitis C Screening 06/11/2022 Medicare Annual Wellness Visit 06/11/2022 Social Influencers of Health Screening 06/11/2022 Hypertension/CHF/CAD Annual BMP Blood Test 06/17/2022 COVID-19 Vaccine ( season) 2024 10/15/2021, 03/30/2021, 09/13/2020, Additional history exists Influenza Vaccine (Season Ended) 2025 03/28/2020, 03/20/2020, 04/06/2018, Additional history exists DTaP,Tdap,and Td Vaccines (2 - Td or Tdap) 05/29/2029 05/29/2019 Zoster Vaccines Completed 11/12/2017, 08/22/2017 Pneumococcal Vaccine: 50+ Years Completed 04/20/2018, 08/22/2017 HIB Vaccines Aged Out No longer eligi ble based on patient's age to complete this topic HPV Vaccines Aged Out No longer eligi ble based on patient's age to complete this topic IPV Vaccines Aged Out No longer eligi ble based on patient's age to complete this topic MMR Vaccines Aged Out No longer eligi ble based on patient's age to complete this topic Meningococcal ACWY Vaccine Aged Out N o longer eligible based on patient's age to complete this topic Meningococcal B Vaccine Aged Out No l onger eligible based on patient's age to complete this topic RSV Immunization Patients Under 20 months Aged Out No longer eligible based on patient's age to complete this topic Varicella Vaccines Aged Out No longer eligible based on patient's age to complete this topic Insurance [employer]UE [employer] - [place] MEDICARE ADVANTAGE Care Teams Network Coordinator Relationship Specialty Start Date End Date Paul Chan MD [address] [place] [phone] PCP - General Internal Medicine 05/20/21
== END 2024-10-17 09:44 | disposition home or self-care (01) ==
LOC: HO.RESP 09:43
PROVIDERS: PCP Internal Medicine Sports Medicine; Visit Provider Internal Medicine Pulmonary Disease
DX: J45.909 Unspecified asthma, uncomplicated (principal)
CPT/HCPCS: 94010; 94640; 94727; 94729

== ENCOUNTER → 2024-10-17 09:46 | Outpatient (BNV) | payer MEDICARE, SELFPAY | PROVIDERS: PCP Internal Medicine Sports Medicine; Visit Provider Hospitalist | DX: J45.909 Unspecified asthma, uncomplicated (principal) | CPT/HCPCS: 94060; 94727; 94729 ==

== ENCOUNTER 2024-10-30 13:03 | Outpatient (AMB) | payer MEDICARE, SELFPAY ==
[2024-10-30 13:09] VITALS: BP 132/67; PULSE 62; O2SAT 95; BMI 31.2
--- NOTE | 2024-10-30 13:09 | A.OFFVIS_ITS ---
Vital Signs 10/30/24 13:09 Height 5 ft 11 in Weight 224 lb BMI 31.2 BP 132/67 Blood Pressure Location Lt brachial Position Sitting Pulse 62 Pulse Source Doppler Pulse Oximetry (%) 95 Oxygen Delivery Method Room Air Intake Visit Reasons: asthma Allergies No Known Allergies Allergy (Verified 03/22/24 09:44) HPI HPI asthma: Details: 74-year-old gentleman, lifetime nonsmoker, followed for asthma and environmental allergies. He continues on Breo and albuterol MDI with good control of his unde rlying symptoms. He also occasionally uses Zyrtec and Flonase. He denies recent exacerbations. [facility] Social History (Updated 03/22/24 @ 09:45 by Yenny Woo Loyda) Patient Tobacco Use Status: Never used Tobacco Review of Systems Const Denies daytime sleepiness, Denies excessive sweating, Denies fatigue, Denies fever(s), Denies lethargy, Denies malaise, Denies night sweats, Denies snoring and Denies weight loss Eyes Denies blurry vision and Denies itchy eyes ENT Denies nasal congestion, Denies post nasal drip, Denies sinus pain, Denies sinus pressure and Denies other ( Thrush) Card Denies chest pain, Denies pedal edema, Denies dyspnea, Denies orthopnea and Denies paroxysmal nocturnal dyspnea Resp Denies cough, Denies hemoptysis, Denies excessive phlegm production, Denies dyspnea, Denies snoring and Denies wheezing GI Denies abdominal pain and Denies heartburn Musc Denies myalgias, Denies arthralgias and Denies joint swelling Skin/Breast Denies rash Neuro Denies memory loss and Denies seizure-like activity Psych Denies abnormal sleep pattern, Denies anxiety and Denies memory loss Endo Denies excessive sweating, Denies fatigue and Denies heat intolerance Eyad/Lymph Denies easy bruising Aller/Immun Denies itchy eyes, Denies seasonal rhinorrhea and Denies wheezing Physical Exam Vital Signs: Last Vital Signs Pulse 62 10/30/24 13:09 BP 132/67 10/30/24 13:09 Pulse Ox 95 10/30/24 13:09 Oxygen Delivery Method Room Air 10/30/24 13:09 BMI result Body Mass Index 31.2 Const General: no acute distress and alert Nutritional Appearance: not obese Orientation/consciousness: Other orientation findings ( oriented) HEENT Head: Yes atraumatic Eyes General: appearance normal, both eyes and all related structures Sclerae: sclerae normal EOM: EOMs intact bilaterally Neck Neck: Yes supple Lymphatic: no lymphadenopathy noted Resp Effort & Inspection: normal respiratory effort and no use of accessory muscles Auscultation: clear to auscultation bilaterally Cardio Rate: regular rate Rhythm: regular rhythm Heart sounds: no gallops, no murmurs and no rubs Skin General skin exam: other ( warm) Extrem General: No clubbing, No cyanosis and No edema Assessment & Plan Assessment & Plan (1) Asthma: Code(s): J45.909 - Unspecified asthma, uncomplicated Category: Medical Plan: Well controlled on Breo and albuterol MDI. Continue current regimen. (2) Environmental allergies: Code(s): Z91.09 - Other allergy status, other than to drugs and biological substances Category: Medical Plan: Well controlled on as needed Zyrtec and Flonase. Continue current regimen. If symptoms stop being controlled, will reassess for Xolair. Medications: Changed From albuterol sulfate 90 mcg/actuation inhalation To albuterol sulfate 90 mcg/actuation 2 puffs inhalation Q4-6H PRN 1 ea 6RF shortness of breath or wheezing Refilled fluticasone furoate-vilanterol 200-25 mcg/dose (Breo Ellipta) 1 inh inhalation DAILY 1 ea 6RF J45.909 - Unspecified asthma, uncomplicated Coding Level of Care Code Est Pt Level 4 (08563) Diagnoses Asthma J45.909 Environmental allergies Z91.09
--- OUTSIDE RECORDS SUMMARY | 2024-10-30 15:01 | XMS_ITS | Clinical Summary ---
Author Organization [facility] Address [address] [place], [place] [id number] Care Team Providers Care Form Grader Operator Name Role Phone Paul Chan MD Primary Care Provider +1- [phone] Allergies Active Allergy Reactions Criticality Noted Date [...] age to complete this topic Care Teams Form Grader Operator Relationship Specialty Start Date End Date Paul Chan MD [address] [place] [phone] PCP - General Internal Medicine 02/14/20
--- OUTSIDE RECORDS SUMMARY | 2024-10-30 15:01 | XMS_ITS | Clinical Summary ---
Author Organization [facility] Address [address] [place] [address] Phone Care Team Providers Care Lens Blank Gauger Name Role Phone Paul Chan MD Primary Care Provider [phone] Allergies Active Allergy Reactions Criticality Noted Date [...] Active Immunizations Name Administration Dates Next Due [facility] (ages 12 & older) VIC S-CoV-2 COVID-19, mRNA, LNP-S, anitra-sucrose, preservative free 10/15/2021 [facility] SARS-CoV-2 COVID-19, mRNA, LNP-S, preservative free [...] Description 11/13/2024 9:30 AM EDT Office Visit [facility] Hematology Oncology [address] [place] [address] Alexsandra Mayo MD [address] [place] [address] Health Maintenance Due Date Last Done Comments Hepatitis A Vaccines (1 of 2 - Risk 2-dose series) 1969 Hepatitis B Vaccines (1 of 3 - Risk 3-dose series) 2010 RSV Immunization Adult Patients (1 - Risk 60-74 years 1-dose series) 2010 03/29/2024 Cholesterol Screening (Lipid Panel) 06/11/2022 Colorectal Cancer Screening: Colonoscopy 06/11/2022 Depression Screening 06/11/2022 Falls Risk Assessment 06/11/2022 Hepatitis C Screening 06/11/2022 Medicare Annual Wellness Visit 06/11/2022 Social Influencers of Health Screening 06/11/2022 Hypertension/CHF/CAD Annual BMP Blood Test 06/17/2022 COVID-19 Vaccine ( season) 2024 10/15/2021, 03/30/2021, 09/13/2020, Additional history exists Influenza Vaccine (Season Ended) 2025 03/28/2024, 04/02/2023, 03/22/2022, Additional history exists DTaP,Tdap,and Td Vaccines (2 [...] on patient's age to complete this topic Procedures Procedure Name Priority Date/Time Associated Diagnosis Comments IRON AND TIBC Routine 10/30/2024 10:52 AM EDT 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) FERRITIN Routine 10/30/2024 10:52 AM EDT 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) COMPLETE BLOOD COUNT Routine 10/30/2024 10:52 AM EDT 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) HEPATIC FUNCTION PANEL Routine 10/30/2024 10:52 AM EDT 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) from Last 3 Months Results * (ABNORMAL) Iron and TIBC (10/30/2024 10:52 AM EDT) Iron 88 50 - 160 mcg/dL LAB CHEMISTRY METHOD 10/30/2024 12:34 PM EDT [facility] TIBC 243(L) 250 - 450 mcg/dL LAB CHEMISTRY METHOD 10/30/2024 12:34 PM EDT [facility] Iron Saturation 36 20 - 50 % LAB CHEMISTRY METHOD 10/30/2024 12:34 PM EDT [facility] Blood Venous blood specimen / Unknown Venipuncture / Unknown 10/30/2024 10:52 AM EDT 10/30/2024 11:30 AM EDT us Alexsandra Mayo MD LAB BLOOD ORDERABLES Final R esult [facility] [address] [place] [address], * Complete blood count (10/30/2024 10:52 AM EDT) WBC 6.0 4.8 - 10.8 K/mcL LAB HEMETOLOGY METHOD 10/30/2024 11:37 AM [facility] RBC 4.80 4.50 - 5.50 [facility] LAB HEMETOLOGY METHOD 10/30/2024 11:37 AM EDT [facility] Hemoglobin 14.8 13.5 - 17.5 g/dL LAB HEMETOLOGY METHOD 10/30/2024 11:37 AM T [facility] Hematocrit 45.8 42.0 - 54.0 % LAB HEMETOLOGY METHOD 10/30/2024 11:37 AM [facility] MCV 95.8 79.0 - 98.0 FL LAB HEMETOLOGY METHOD 10/30/2024 11:37 AM EDT [facility] MCH 31.0 27.0 - 32.0 pcg LAB HEMETOLOGY METHOD 10/30/2024 11:37 AM [facility] MCHC 32.3 32.0 - 37.0 g/dL LAB HEMETOLOGY METHOD 10/30/2024 11:37 AM [facility] RDW 13.4 11.0 - 15.0 % LAB HEMETOLOGY METHOD 10/30/2024 11:37 AM [facility] Platelets 167 130 - 400 K/mcL LAB HEMETOLOGY METHOD 10/30/2024 11:37 AM EDT [facility] MPV 10.1 7.0 - 11.0 FL LAB HEMETOLOGY METHOD 10/30/2024 11:37 AM EDT [facility] NRBC 0.0 <1.0 % LAB HEMETOLOGY METHOD 10/30/2024 11:37 AM EDT [facility] NRBC Absolute 0.00 <0.10 K/mcL LAB HEMETOLOGY METHOD 10/30/2024 11:37 AM EDT [facility] Blood Venous blood specimen / Unknown Venipuncture / Unknown 10/30/2024 10:52 AM EDT 10/30/2024 11:29 AM EDT Alexsandra Mayo MD LAB BLOOD ORDERABLES Final R esult Performing Organization Address City/[facility]/ZIP Co de Phone Number [facility] [address] [place] [address], [place] [phone] * Ferritin (10/30/2024 10:52 AM EDT) [facility] Ferritin 26 26 - 388 ng/mL LAB CHEMISTRY METHOD 10/30/2024 12:34 PM EDT [facility] Blood Venous blood specimen / Unknown Venipuncture / Unknown 10/30/2024 10:52 AM EDT 10/30/2024 11:30 AM EDT us Alexsandra Mayo MD LAB BLOOD ORDERABLES Final R esult [facility] [address] [place] [address], [place] [phone] * Hepatic function panel (10/30/2024 10:52 AM EDT) [facility] Total Protein 6.6 6.0 - 8.0 g/dL LAB CHEMISTRY METHOD 10/30/2024 12:34 PM [facility] Albumin 3.7 3.2 - 5.0 g/dL LAB CHEMISTRY METHOD 10/30/2024 12:34 PM [facility] Total Bilirubin 1.1 0.0 - 1.4 mg/dL LAB CHEMISTRY METHOD 10/30/2024 12:34 PM [facility] Bilirubin, Direct 0.2 0.0 - 0.3 mg/dL LAB CHEMISTRY METHOD 10/30/2024 12:34 PM [facility] Bilirubin, Indirect 0.9 0.0 - 1.1 mg/dL LAB CHEMISTRY METHOD 10/30/2024 12:34 PM [facility] ALT (SGPT) 35 10 - 60 unit/L LAB CHEMISTRY METHOD 10/30/2024 12:34 PM [facility] AST (SGOT) 23 10 - 42 unit/L LAB CHEMISTRY METHOD 10/30/2024 12:34 PM [facility] Alkaline Phosphatase 98 42 - 121 unit/L LAB CHEMISTRY METHOD 10/30/2024 12:34 PM [facility] Blood Venous blood specimen / Unknown Venipuncture / Unknown 10/30/2024 10:52 AM EDT 10/30/2024 11:30 AM EDT us [facility]AR[facility] LAB BLOOD ORDERABLES Final R esult [facility] [address] [place] [address], from Last 3 Months Insurance [employer] - [place] MEDICARE [employer]VANTAGE Care Teams Lens Blank Gauger Relationship Specialty Start Date End Date Paul Chan MD [address] [place] [id number] PCP - General Internal Medicine 05/20/21
== END 2024-10-30 13:33 | disposition home or self-care (01) ==
LOC: HO.HPS 13:03
PROVIDERS: PCP Internal Medicine Sports Medicine; Visit Provider Internal Medicine Pulmonary Disease
DX: J45.909 Unspecified asthma, uncomplicated (principal); Z91.09 Other allergy status, other than to drugs and biological substances
CPT/HCPCS: 99214

== ENCOUNTER → 2024-10-30 13:03 | Outpatient (BNVA) | payer MEDICARE, SELFPAY | PROVIDERS: PCP Internal Medicine Sports Medicine; Visit Provider Internal Medicine Pulmonary Disease | DX: J45.909 Unspecified asthma, uncomplicated (principal); Z91.09 Other allergy status, other than to drugs and biological substances | CPT/HCPCS: 99212 ==

== ENCOUNTER 2025-04-30 13:14 | Outpatient (AMB) | payer MEDICARE, SELFPAY ==
[2025-04-30 13:17] VITALS: BP 127/77; PULSE 73; O2SAT 95; BMI 31.2
--- NOTE | 2025-04-30 13:17 | A.OFFVIS_ITS ---
Vital Signs 04/30/25 13:17 Height 5 ft 11 in Weight 224 lb BMI 31.2 BP 127/77 Blood Pressure Location Lt brachial Position Sitting Pulse 73 Pulse Source Pulse Oximeter Pulse Oximetry (%) 95 Oxygen Delivery Method Room Air Intake Visit Reasons: Asthma Allergies No Known Allergies Allergy (Verified 04/30/25 13:21) HPI HPI Asthma: Details: 74-year-old gentleman, lifetime nonsmoker, followed for asthma and environmental allergies. He continues on Breo and albuterol MDI with good control of his underlying symptoms. He also occasionally uses Zyrtec and Flonase. He denies recent exacerbations. He had a recent URI that he recovered from to baseline. [facility] Social History (Updated 03/22/24 @ 09:45 by Yenny Woo Loyda) Patient Tobacco Use Status: Never used Tobacco Review of Systems Const Denies daytime sleepiness, Denies excessive sweating, Denies fatigue, Denies fever(s), Denies lethargy, Denies malaise, Denies night sweats, Denies snoring and Denies weight loss Eyes Denies blurry vision and Denies itchy eyes ENT Denies nasal congestion, Denies post nasal drip, Denies sinus pain, Denies sinus pressure and Denies other ( Thrush) Card Denies chest pain, Denies pedal edema, Denies dyspnea, Denies orthopnea and Denies paroxysmal nocturnal dyspnea Resp Denies cough, Denies hemoptysis, Denies excessive phlegm production, Denies dyspnea, Denies snoring and Denies wheezing GI Denies abdominal pain and Denies heartburn Musc Denies myalgias, Denies arthralgias and Denies joint swelling Skin/Breast Denies rash Neuro Denies memory loss and Denies seizure-like activity Psych Denies abnormal sleep pattern, Denies anxiety and Denies memory loss Endo Denies excessive sweating, Denies fatigue and Denies heat intolerance Eyad/Lymph Denies easy bruising Aller/Immun Denies itchy eyes, Denies seasonal rhinorrhea and Denies wheezing Physical Exam Vital Signs: Last Vital Signs Pulse 73 04/30/25 13:17 BP 127/77 04/30/25 13:17 Pulse Ox 95 04/30/25 13:17 Oxygen Delivery Method Room Air 04/30/25 13:17 BMI result Body Mass Index 31.2 Const General: no acute distress and alert Nutritional Appearance: not obese Orientation/consciousness: Other orientation findings ( oriented) HEENT Head: Yes atraumatic Eyes General: appearance normal, both eyes and all related structures Sclerae: sclerae normal EOM: EOMs intact bilaterally Neck Neck: Yes supple Lymphatic: no lymphadenopathy noted Resp Effort & Inspection: normal respiratory effort and no use of accessory muscles Auscultation: clear to auscultation bilaterally Cardio Rate: regular rate Rhythm: regular rhythm Heart sounds: no gallops, no murmurs and no rubs Skin General skin exam: other ( warm) Extrem General: No clubbing, No cyanosis and No edema Assessment & Plan Assessment & Plan (1) Asthma: Code(s): J45.909 - Unspecified asthma, uncomplicated Category: Medical Plan: Well controlled on Breo and albuterol MDI. Continue current regimen. (2) Environmental allergies: Code(s): Z91.09 - Other allergy status, other than to drugs and biological substances Category: Medical Plan: Controlled on as needed Zyrtec and Flonase. Continue current regimen. Coding Level of Care Code Est Pt Level 4 (33485) Diagnoses Asthma J45.909 Environmental allergies Z91.09
== END 2025-04-30 13:32 | disposition home or self-care (01) ==
LOC: HO.HPS 13:15
PROVIDERS: PCP Internal Medicine Sports Medicine; Visit Provider Internal Medicine Pulmonary Disease
DX: J45.909 Unspecified asthma, uncomplicated (principal); Z91.09 Other allergy status, other than to drugs and biological substances
CPT/HCPCS: 99214

== ENCOUNTER → 2025-04-30 13:14 | Outpatient (BNVA) | payer MEDICARE, SELFPAY | PROVIDERS: PCP Internal Medicine Sports Medicine; Visit Provider Internal Medicine Pulmonary Disease | DX: J45.909 Unspecified asthma, uncomplicated (principal); Z91.09 Other allergy status, other than to drugs and biological substances | CPT/HCPCS: 99212 ==